=== PATIENT | female | born 1985 | race Caucasian/White ===

== ENCOUNTER 2018-06-17 05:14 | Inpatient (IN) | payer MEDICAID, OTHER ==
[2018-06-17] MEDS ORDERED: BRETHINE SUB-Q NR (07:14)
[2018-06-17] MEDS ORDERED: LACTATED RINGERS 1,000 ML IV SCH (08:00)
[2018-06-17 08:06] LABS: Hematocrit 40.5 % (30.3-42.9); Hemoglobin 13.5 gm/dl (10.1-14.3); Mean Corpuscular HGB Conc 33 % (30-34); Mean Corpuscular Volume 88 fl (79-97); Platelet Count 184 K/mm3 (140-440); Red Blood Count 4.59 M/mm3 (3.65-5.03)
[2018-06-17] MEDS: LACTATED RINGERS 1,000 ML IV SCH ×2 (08:30→10:56)
[2018-06-17] MEDS ORDERED: BICITRA PO SCH (10:21)
[2018-06-17] MEDS ORDERED: REGLAN IV SCH (10:21)
[2018-06-17] MEDS ORDERED: PEPCID IV SCH (10:21)
--- NOTE | 2018-06-17 10:28 | History and Physical Report ---
History of Present Illness Date of examination: 06/17/18 Date of admission: 06/17/18 08:58 Chief complaint: SIUP at 39 weeks and 2 days in active labor. Previous C/section. Unwanted fertility. History of present illness: Patient is 32 year old , LMP 10/23/17, EDC 06/22/18 at 39 weeks and 2 days gestation who presented to triage complaining of having contractions which started at 12 AM. She denies any fluid leakage or bleeding. She reports good movement. She has a previous C/section followed by 2 VBACs. She also wants tubal ligation. Past History Past Medical History: no pertinent history Past Surgical History: section Family/Genetic History: none Social history: no significant social history - Obstetrical History Expected Date of Delivery: 06/22/18 Actual Gestation: 39 Week(s) 2 Day(s) : 5 Para: 4 Number of Living Children: 3 Medications and Allergies Allergies Allergy/AdvReac Type Severity Reaction Status Date / Time No Known Allergies Allergy Verified 10/02/15 11:20 Home Medications Medication Instructions Recorded Confirmed Last Taken Type Vit Calc,Iron,Folic 1 each PO DAILY 10/02/15 10/02/15 10/01/15 09:00 History [ Vitamins] 1 Active Meds: Active Medications Lactated Ringer's (Lactated Ringers) 1,000 mls @ 125 mls/hr IV DIRECT SUSAN Terbutaline Sulfate (Brethine) 0.25 mg SUB-Q ONCE NR Stop: 06/17/18 15:00 - Vital Signs Vital signs: Vital Signs Pulse BP 129 H 129/81 06/17/18 05:32 06/17/18 05:32 Temp Pulse Resp BP Pulse Ox 98.8 F 117 H 16 106/77 99 06/17/18 09:05 06/17/18 09:07 06/17/18 09:05 06/17/18 09:07 06/17/18 06:05 - Physical Exam Cardiovascular: Normal S1, Normal S2 Lungs: Positive: Clear to auscultation Vulva: both: normal Adnexa: both: normal Deep Tendon Reflex Grade: Normal +2 - Obstetrical FHR: category 1 Uterine Contraction Monitor Mode: External Cervical Dilatation: 4 Cervical Effacement Percentage: 60 station: -3 Uterine Contraction Pattern: Irregular Uterine Contraction Intensity: Moderate Results Result Diagrams: 06/17/18 07:55 Abnormal lab results 06/17/18 Range/Units 07:55 WBC 11.4 H (4.5-11.0) K/mm3 All other labs normal. Assessment and Plan - Patient Problems (1) 39 weeks gestation of Current Visit: Yes Status: Acute (2) Active labor Current Visit: Yes Status: Acute (3) Previous section Current Visit: Yes Status: Acute Plan to address problem: Admit to labor floor. Routine pre-op labs. IV fluid. monitoring. Patient was counselled for repeat C/section and BTL. Risks, benefits, and alternatives of the procedures were discussed in detail with the patient which included but not limited to the risk of infection, hemorrhage requiring blood transfusion, injury to the bowel or bladder and blood vessels, risk of the tubal ligation to fail to prevent which can result in unwanted in the future. The patient expressed understanding, her questions were answered, and she gave informed consent. Anesthesia has been notified. Keep NPO. (4) Unwanted fertility Current Visit: Yes Status: Acute Plan to address problem: Patient wants BTL. (5) Patient declines vaginal after section () Current Visit: Yes Status: Acute
[2018-06-17] MEDS ORDERED: PITOCin/NS 20 UNIT/1000ML DRIP 20 UNITS/1,000 ML BAG IV SCH ×2 (11:00→14:00)
[2018-06-17] MEDS ORDERED: ANCEF/STERILE WATER 2 GM/20 ML 2 GM/20 ML SYRINGE IV NR (11:00)
[2018-06-17] MEDS ORDERED: SUBLIMAZE ONE (11:10)
[2018-06-17] MEDS ORDERED: ZOFRAN ONE (11:10)
[2018-06-17 11:19] LABS: Basophils % (Auto) 0.3 % (0.0-1.8); Eosinophils % (Auto) 0.1 % (0.0-4.3); Lymphocytes # (Auto) 1.6 K/mm3 (1.2-5.4); Lymphocytes % (Auto) 13.4 % (13.4-35.0); Monocytes # (Auto) 0.6 K/mm3 (0.0-0.8); Monocytes % (Auto) 4.8 % (0.0-7.3)
[2018-06-17] MEDS ORDERED: METHERGINE IM ONE (11:20)
[2018-06-17] MEDS ORDERED: NACL 0.9% IR ONE (11:30)
[2018-06-17] MEDS ORDERED: WATER FOR IRRIG STERILE IR ONE (11:30)
[2018-06-17] MEDS ORDERED: NEO SYNEPHRINE ONE (12:20)
[2018-06-17] MEDS ORDERED: TORADOL IV PRN ×2 (13:55)
[2018-06-17] MEDS ORDERED: PERCOCET 5/325 PO PRN (13:55)
[2018-06-17] MEDS ORDERED: SENOKOT PO PRN (13:55)
[2018-06-17] MEDS ORDERED: PHENERGAN PR PRN (13:55)
[2018-06-17] MEDS ORDERED: LANSINOH TP PRN (13:55)
[2018-06-17] MEDS ORDERED: MILK OF MAGNESIA PO PRN (13:55)
[2018-06-17] MEDS ORDERED: ZOFRAN IV PRN (13:55)
[2018-06-17] MEDS ORDERED: NARCAN 0.4 MG/1 ML IV PRN (13:55)
[2018-06-17] MEDS ORDERED: MORPHINE IV PRN ×2 (13:55)
[2018-06-17] MEDS ORDERED: TUCKS PAD TP PRN (13:55)
[2018-06-17] MEDS ORDERED: ANUCORT-HC PR PRN (13:55)
[2018-06-17] MEDS ORDERED: MYLICON PO PRN (13:55)
[2018-06-17] MEDS ORDERED: SODIUM CHLORIDE FLUSH SYRINGE 10 ML IV SCH (14:00)
--- NOTE | 2018-06-17 14:09 | Operative Report ---
Operative Report Operative Report: Preoperative diagnosis 1. SIUP at 39 weeks and 2 days gestation in active labor. 2. Previous C/section. 3. Declined . 4. Unwanted fertility Postoperative diagnosis: Same. Procedure: 1. Repeat low-transverse section. 2. Bilateral tubal ligation via Pem[place]oy method. Surgeon: Dr. Fraser Automation Application Engineer: none Anesthesia: epidural. IVF: RL 2.1 liter EBL: 800 cc Urine: 125 cc clear Complications: none. Intraoperative findings: 1. A male infant found in an BERNY position, delivered at 12:06 AM, Apgars 8 at 1 minute and 9 at 5 minutes, weight 7 lbs. 15 oz. 2. Normal fallopian tubes and ovaries bilaterally. Procedure details: Risks, benefits, and alternatives of the procedure were discussed in detail with the patient which included but not limited to the risk of infection, hemorrhage requiring blood transfusion, injury to the bowel or bladder and blood vessels, failure of the tubal ligation to prevent which can result in unwanted pregnancies in the future. The patient expressed understanding, her questions were answered, and she gave informed consent. The patient was taken to the operating room with an IV fluid infusing Ringers lactate. In the operating room, she was placed in a sitting position and given spinal anesthesia. Then, she was placed in a dorsal supine position with a leftward tilt. Mauricio catheter in Venodyne boots were placed. The abdomen was washed and she was prepared and draped in usual sterile fashion. After confirming adequate epidural anesthesia, the Pfannenstiel skin incision was made in the lower abdomen about 2 cm above the pubic symphysis using the scalpel. This incision was carried down to the underlying fascia using the Bovie. The fascia was opened bilaterally in a curvilinear fashion using the Bovie. 2 straight Kocker clamps were used to grasp the upper edge of the fascia from which the underlying rectus abdominis muscles was dissected off using the Bovie. A similar procedure was done with the lower edge of the fascia to dissect the underlying rectus abdominis muscle. The muscle was bluntly from the midline by pulling. The parietal peritoneum was grasped with 2 hemostat clamps and entered sharply using Metzenbaum scissors. A quick survey of the anatomy revealed a gravid uterus, normal fallopian tubes and ovaries bilaterally. A bladder flap was created. Angel'O retractor was placed in the incision for proper visualization. A low transverse incision was made in the lower uterine segment using the scalpel and extended bilaterally in a curvilinear fashion using bandage scissors. There was copious amount of clear amniotic fluid. The was found in an BERNY position, the head was delivered atraumatically followed by the delivery of the shoulders and the rest of the body at 12:06 PM. The cord was clamped 2 and cut and the was handed off to the waiting traffic control officer. The infant was a male, Apgars were 8 at 1 minute and 9 at 5 minutes, weight was 7 pounds and 15 ounces. Cord blood was collected. The placenta was delivered manually and it was complete with a three-vessel cord. The uterine cavity was cleaned of clots and debris using dry lap sponges. The uterine incision was repaired in a running locked fashion using 0 Vicryl sutures. A second layer of imbrication was placed. The gutters were cleaned of clots and debris using dry lap sponges. Then, bilateral tubal ligation was performed. The left fallopian tube was grasped with [place] clamps, suture ligated and a 2 cm segment was resected. A similar procedure was done with the right tube where a 2-cm segment was resected. After confirming adequate hemostasis, the instruments were removed from the abdominal cavity. The rectus muscle was reapproximated in an interrupted fashion using 0 Vicryl sutures. The fascia was closed in a running fashion using 0 Vicryl sutures. The skin was closed with safia. Sterile dressing was placed. The counts of laps, needles, sponges, and instruments were correct 2. The patient tolerated the procedure well, she was taken to the recovery room in a stable condition.
--- NOTE | 2018-06-17 19:03 | Post Anesthesia Evaluation ---
- Post Anesthesia Evaluation Patient Participated: Yes Airway Patent: Yes Stable Respiratory Function: Yes Nausea/Vomiting: No Temp > 96.8F: Yes Pain Manageable: Yes Adequeate Hydration: Yes Anesthesia Complications: No Block Receding Appropriately: Yes Patient on Ventilator: No
--- NOTE | 2018-06-17 19:04 | Anesthesia Day of Surgery ---
Anesthesia Day of Surgery - Day of Surgery Patient Examined: Yes Patient H&P Reviewed: Yes Patient is NPO: Yes Beta Blockers: No Cardiac Clearance: No Pulmonary Clearance: No Hossein's Test: N/A
--- NOTE | 2018-06-17 19:04 | Anesthesia Consultation ---
Anesthesia Consult and Med Hx Date of service: 06/17/18 - Airway Anesthetic Teeth Evaluation: Good ROM Head & Neck: Adequate Mental/Hyoid Distance: Adequate Mallampati Class: Class I Intubation Access Assessment: Good - Pulmonary Exam CTA: Yes - Cardiac Exam Cardiac Exam: RRR - Pre-Operative Health Status ASA Pre-Surgery Classification: ASA2 Proposed Anesthetic Plan: Spinal - Pulmonary Hx Smoking: No Hx Asthma: No Hx Respiratory Symptoms: No SOB: No COPD: No Home Oxygen Therapy: No Hx Pneumonia: No Hx Sleep Apnea: No - Cardiovascular System Hx Hypertension: No Hx Coronary Artery Disease: No Hx Heart Attack/AMI: No Hx Angina: No Hx Percutaneous Transluminal Coronary Angioplasty (PTCA): No Hx Cardia Arrhythmia: No Hx Pacemaker: No Hx Internal Defibrillator: No Hx Valvular Heart Disease: No Hx Heart Murmur: No Hx Peripheral Vascular Disease: No - Central Nervous System Hx Neuromuscular Disorder: No Hx Seizures: No CVA: No Hx Back Pain: No Hx Psychiatric Problems: No - Gastrointestinal Hx Ulcer: No Hx Gastroesophageal Reflux Disease: No - Endocrine Hx Renal Disease: No Hx End Stage Renal Disease: No Hx Cirrhosis: No Hx Liver Disease: No Hx Insulin Dependent Diabetes: No Hx Non-Insulin Dependent Diabetes: No Hx Thyroid Disease: No Hx Hypothyroidism: No Hx Hyperthyroidism: No - Hematic Hx Anemia: No Hx Sickle Cell Disease: No - Other Systems Hx Alcohol Use: No Hx Substance Use: No Hx Cancer: No Hx Obesity: No
[2018-06-18 01:08] LABS: Hematocrit 33.7 % (30.3-42.9); Hemoglobin 11.1 gm/dl (10.1-14.3)
--- NOTE | 2018-06-18 10:06 | Progress Note ---
Assessment and Plan - Patient Problems (1) Previous section Current Visit: Yes Status: Acute (2) delivery delivered Current Visit: Yes Status: Acute (3) Unwanted fertility Current Visit: Yes Status: Acute Plan to address problem: 1. Continue routine PP orders 2. Keep incision site clean and dry 3. D/C tomorrow 4. F/U in office in 1 week for incision check 5. F/U in office in 6 weeks for PPV Subjective - Subjective Date of service: 06/18/18 Principal diagnosis: Repeat C/S with BTL Interval history: See: Admission H & P, OB delivery summary and PP progress notes Patient reports: appetite normal, voiding normally, pain well controlled, flatus, ambulating normally, no bowel movement [place]: doing well, bottle feeding Objective - Vital Signs Latest vital signs: Vital Signs Temp Pulse Resp BP BP Pulse Ox 06/18/18 08:05 98.4 F 103 H 18 116/75 96 06/18/18 05:33 98.8 F 76 18 100/66 06/18/18 00:25 98.7 F 91 H 18 104/63 06/17/18 21:40 18 06/17/18 20:30 99.3 F 82 18 102/62 97 06/17/18 14:49 98.7 F 76 20 124/72 98 06/17/18 14:20 98.5 F 77 16 126/70 99 06/17/18 14:15 74 18 132/66 99 06/17/18 14:00 84 16 143/82 100 06/17/18 13:40 84 20 130/75 100 06/17/18 13:25 84 20 125/77 100 06/17/18 13:20 98.1 F 85 16 134/74 100 Intake and Output 06/17/18 06/18/18 06/18/18 23:59 07:59 15:59 Intake Total 240 480 360 Output Total 550 900 Balance -310 -420 360 Intake: Oral 240 360 Intake, Free Water 480 Output: Urine 550 900 Indwelling Catheter 550 700 Void 200 Other: Total, Intake Amount 240 360 Total, Output Amount 550 200 - Exam Breasts: Present: normal Cardiovascular: Present: Regular rate, Normal S1, Normal S2 Lungs: Present: Clear to auscultation, Normal air movement Abdomen: Present: soft Uterus: Present: firm, fundal height at umbilicus Extremities: Present: normal Deep Tendon Reflex Grade: Normal +2 Incision: Present: dressed (no shadow bleeding noted) - Labs Labs: Abnormal lab results 06/17/18 Range/Units 07:55 WBC 11.4 H (4.5-11.0) K/mm3 Seg Neutrophils % 81.4 H (40.0-70.0) % Seg Neutrophils # 9.6 H (1.8-7.7) K/mm3
--- NOTE | 2018-06-18 10:11 | Discharge Summary ---
<FILIPE BERNAL - Last Filed: 06/18/18 10:06> Providers - Providers Date of Admission: 06/17/18 08:58 Date of discharge: 06/19/18 Attending physician: SUELLEN PAEZ MD Primary care physician: SUELLEN PAEZ MD Hospitalization Reason for admission: other (Repeat C/S with BTL) Delivery: Procedure: bilateral tubal ligation, repeat low transverse Procedure details: See operative report Episiotomy: none Laceration: none Incision: other (steri-strips intact) Other procedures: tubal ligation complications: none [place] baby: male Hospital course: See: Admission H & P, OB delivery summary and PP progress notes Disposition: - TO HOME OR SELFCARE - Discharge Diagnoses (1) Previous section Status: Acute (2) delivery delivered Status: Acute (3) Unwanted fertility Status: Acute Plan - Provider Discharge Summary Activity: routine, no sex for 6 weeks, no heavy lifting 4 weeks, no strenuous exercise Diet: routine Instructions: routine Additional instructions: [] Smoking cessation referral if applicable(refer to patient education folder for contact #) [] Refer to [facility] Booklet Call your doctor immediately for: * Fever > 100.5 * Heavy vaginal bleeding ( >1 pad per hour) * Severe persistent headache * Shortness of breath * Reddened, hot, painful area to leg or breast * Drainage or odor from incision. * Keep incision clean and dry at all times and follow doctor's instructions regarding bathing/showering - Follow up plan Follow up: SUELLEN PAEZ MD [Primary Care Provider] - 7 Days <TRACY [place] - Last Filed: 06/25/18 10:58> Providers - Providers Date of Admission: 06/17/18 08:58 Attending physician: SUELLEN PAEZ MD Primary care physician: SUELLEN PAEZ MD Hospitalization Pertinent studies: Laboratory Last Values WBC 11.4 K/mm3 (4.5-11.0) H 06/17/18 07:55 RBC 4.59 M/mm3 (3.65-5.03) 06/17/18 07:55 Hgb 11.1 gm/dl (10.1-14.3) 06/18/18 00:51 Hct 33.7 % (30.3-42.9) D 06/18/18 00:51 MCV 88 fl (79-97) 06/17/18 07:55 MCH 29 pg (28-32) 06/17/18 07:55 MCHC 33 % (30-34) 06/17/18 07:55 RDW 15.0 % (13.2-15.2) 06/17/18 07:55 Plt Count 184 K/mm3 (140-440) 06/17/18 07:55 Lymph % (Auto) 13.4 % (13.4-35.0) 06/17/18 07:55 [place] % (Auto) 4.8 % (0.0-7.3) 06/17/18 07:55 Eos % (Auto) 0.1 % (0.0-4.3) 06/17/18 07:55 Baso % (Auto) 0.3 % (0.0-1.8) 06/17/18 07:55 Lymph # 1.6 K/mm3 (1.2-5.4) 06/17/18 07:55 [place] # 0.6 K/mm3 (0.0-0.8) 06/17/18 07:55 Eos # 0.0 K/mm3 (0.0-0.4) 06/17/18 07:55 Baso # 0.0 K/mm3 (0.0-0.1) 06/17/18 07:55 Seg Neutrophils % 81.4 % (40.0-70.0) H 06/17/18 07:55 Seg Neutrophils # 9.6 K/mm3 (1.8-7.7) H 06/17/18 07:55 RPR Nonreactive (Nonreactive) 06/17/18 07:55 Blood Type O POSITIVE 06/17/18 07:55 Antibody Screen Negative 06/17/18 07:55 Plan - Provider Discharge Summary Additional instructions: [] Smoking cessation referral if applicable(refer to patient education folder for contact #) [] Refer to [facility] Booklet Call your doctor immediately for: * Fever > 100.5 * Heavy vaginal bleeding ( >1 pad per hour) * Severe persistent headache * Shortness of breath * Reddened, hot, painful area to leg or breast * Drainage or odor from incision. * Keep incision clean and dry at all times and follow doctor's instructions regarding bathing/showering
[2018-06-18] MEDS: FEOSOL PO SCH (10:19)
[2018-06-18] MEDS: PRENATAL VITAMIN PO SCH (10:19)
[2018-06-18] MEDS: IBUPROFEN PO PRN (21:17)
[2018-06-19] MEDS: PRENATAL VITAMIN PO SCH (10:35)
[2018-06-19] MEDS: IBUPROFEN PO PRN (10:35)
[2018-06-19] MEDS: FEOSOL PO SCH (10:36)
[2018-06-19 12:19] VITALS: BP 109/72
== END 2018-06-19 13:28 | disposition home or self-care (01) | DRG 785 ==
LOC: TRG 05:14 → LD 08:58 → TRG 08:58 → OB 15:12
PROVIDERS: ADMIT Obstetrics & Gynecology; ATTEND Obstetrics & Gynecology
PROC: 10D00Z1 Extraction of Products of Conception, Low, Open Approach (ICD-10-PCS; principal; 2018-06-17)
PROC: 0UB70ZZ Excision of Bilateral Fallopian Tubes, Open Approach (ICD-10-PCS; 2018-06-17)
DX: O34.211 Maternal care for low transverse scar from previous cesarean delivery (principal); Z3A.39 39 weeks gestation of pregnancy; Z37.0 Single live birth; Z64.0 Problems related to unwanted pregnancy
CPT/HCPCS: 36415; 85014; 85018; 85025; 85027; 86592; 86850; 86900; 86901; 88302; G0378; J0690; J1885; J2210; J2370; J2405; J2590; J2765; J3010; J7120